=== PATIENT | male | born 1995 | race Caucasian/White ===

== ENCOUNTER 2024-04-04 20:39 | Emergency (ER) | payer OTHER ==
[~2024-04-04] VITALS: Ht 177.8 cm; Wt 82.5 kg
[2024-04-04 20:54] VITALS: O2SAT 96
[2024-04-04 20:56] VITALS: BP 137/78; PULSE 86; RESP 18; TEMP 98.4; O2SAT 98
[2024-04-04] MEDS ORDERED: BO1 TP (21:59)
[2024-04-04] MEDS: TETANUS, DIPHTHERIA, PERTUSSIS VAC/PF 0.5ML (>10YR OLD) IM ONE (22:11)
== END 2024-04-04 22:15 | disposition home or self-care (01) ==
LOC: ER 20:39
DX: S61.102A Unspecified open wound of left thumb with damage to nail, initial encounter (principal); Z90.49 Acquired absence of other specified parts of digestive tract; X58.XXXA Exposure to other specified factors, initial encounter; Y93.89 Activity, other specified; Y92.89 Other specified places as the place of occurrence of the external cause; Y99.8 Other external cause status
CPT/HCPCS: 90715; 90471; 99283; Z7610

== ENCOUNTER 2024-10-19 01:07 | Emergency (ER) | payer SELFPAY ==
[~2024-10-19] VITALS: Ht 180.3 cm; Wt 83.8 kg
[~2024-10-19 01:07] MED LIST: BO1 TP
[2024-10-19 01:24] VITALS: O2SAT 99
[2024-10-19 02:12] LABS: BASOPHILS % 0.6 % (0.0-2.0); EOSINOPHILS % 0.3 % (0.0-5.0); HEMATOCRIT. 48.2 % (42.0-52.0); HEMOGLOBIN. 15.9 g/dL (14.0-18.0); LYMPHOCYTES % 32.7 % (20.0-50.0); MEAN CORPUSCULAR HEMOGLOBIN 27.6 pg (28.0-32.0); MEAN CORPUSCULAR HGB CONC 32.9 g/dL (31.0-37.0); MEAN CORPUSCULAR VOLUME 83.9 fL (80.0-94.0); MEAN PLATELET VOLUME 9.3 fl (7.4-10.4); NEUTROPHILS % 60.4 % (40.0-76.0); PLATELET 217 x1000/uL (130-400); RED BLOOD CELL COUNT 5.74 mill/uL (4.7-6.1); RED CELL DISTRIBUTION WIDTH 13.9 % (11.6-14.6)
[2024-10-19 02:31] LABS: CHLORIDE 104 mEq/L (98-107); POTASSIUM 3.8 mEq/L (3.5-5.1); SODIUM 142 mEq/L (136-145)
[2024-10-19 02:32] LABS: CALCIUM 9.9 mg/dL (8.7-10.4); CARBON DIOXIDE 28 mEq/L (21-32)
[2024-10-19 02:37] LABS: CREATININE 0.8 mg/dL (0.6-1.3); GLUCOSE 103 mg/dL (70-105); UREA NITROGEN BLOOD 8 mg/dL (9-23)
[2024-10-19 03:19] LABS: TROPONIN I HIGH SENSITIVITY < 4 ng/L (3.0-53)
[2024-10-19 04:18] VITALS: BP 123/62; PULSE 95; RESP 18; TEMP 36.8; O2SAT 99
[2024-10-19] MEDS ORDERED: NAPR-1176 MT (04:36)
== END 2024-10-19 04:49 | disposition home or self-care (01) ==
LOC: ER 01:07
DX: R07.89 Other chest pain (principal); F41.9 Anxiety disorder, unspecified; Z79.899 Other long term (current) drug therapy; Z90.49 Acquired absence of other specified parts of digestive tract; Z79.1 Long term (current) use of non-steroidal anti-inflammatories (NSAID)
CPT/HCPCS: 36415; 71045; 80048; 84484; 85025; 85379; 93005; 99285

== ENCOUNTER 2024-10-30 11:06 | Emergency (ER) | payer OTHER ==
[~2024-10-30] VITALS: Ht 177.8 cm; Wt 83.9 kg
[~2024-10-30 11:06] MED LIST changes: +NAPR-1176 MT
[2024-10-30 11:11] VITALS: O2SAT 100
[2024-10-30 11:15] VITALS: BP 121/55; PULSE 77; RESP 14; TEMP 36.8; O2SAT 99
[2024-10-30 12:07] LABS: BASOPHILS % 0.2 % (0.0-2.0); EOSINOPHILS % 0.1 % (0.0-5.0); HEMATOCRIT. 47.5 % (42.0-52.0); MEAN CORPUSCULAR HEMOGLOBIN 27.7 pg (28.0-32.0); MEAN CORPUSCULAR HGB CONC 33.8 g/dL (31.0-37.0); MEAN PLATELET VOLUME 9.5 fl (7.4-10.4); MONOCYTES % 4.1 % (2.0-8.0); NEUTROPHILS % 73.6 % (40.0-76.0); PLATELET 192 x1000/uL (130-400); RED BLOOD CELL COUNT 5.79 mill/uL (4.7-6.1); RED CELL DISTRIBUTION WIDTH 14.2 % (11.6-14.6); WHITE BLOOD COUNT 8.5 x1000/uL (4.5-11.0)
[2024-10-30 12:20] LABS: CHLORIDE 104 mEq/L (98-107); POTASSIUM 4.1 mEq/L (3.5-5.1); SODIUM 139 mEq/L (136-145)
[2024-10-30 12:21] LABS: CARBON DIOXIDE 30 mEq/L (21-32)
[2024-10-30 12:22] LABS: CALCIUM 9.7 mg/dL (8.7-10.4)
[2024-10-30 12:26] LABS: CREATININE 0.7 mg/dL (0.6-1.3); GLUCOSE 104 mg/dL (70-105); UREA NITROGEN BLOOD 9 mg/dL (9-23)
[2024-10-30 12:47] LABS: TROPONIN I HIGH SENSITIVITY < 4 ng/L (3.0-53)
== END 2024-10-30 14:24 | disposition home or self-care (01) ==
LOC: ER 11:06
DX: R07.89 Other chest pain (principal); F41.9 Anxiety disorder, unspecified; Z90.49 Acquired absence of other specified parts of digestive tract
CPT/HCPCS: 36415; 71045; 80048; 84484; 85025; 85379; 93005; 99285